=== PATIENT | female | born 1985 | race Caucasian/White ===

== ENCOUNTER → 2016-07-16 | Outpatient (REF) | payer OTHER | LOC: M LAB REF 12:22 | PROVIDERS: ATTEND Advanced Practice Midwife | DX: Z34.83 Encounter for supervision of other normal pregnancy, third trimester (principal); Z36 Encounter for antenatal screening of mother ==

== ENCOUNTER 2016-08-11 01:55 | Inpatient (IN) | payer OTHER ==
[~2016-08-11] VITALS: Ht 170.2 cm; Wt 97.0 kg
[2016-08-11] MEDS ORDERED: AMPICILLIN SOD 2 GM in D5W MINI-BAG PLUS 100 ML IV STA (02:47)
[2016-08-11 03:19] LABS: MEAN CORPUSCULAR HEMOGLOBIN 31.5 pg (27.0-33.0); MEAN CORPUSCULAR HGB CONC 34.1 g/dl (32.0-36.5); MEAN CORPUSCULAR VOLUME 92.4 fl (80.0-96.0); RED CELL DISTRIBUTION WIDTH 14.5 % (11.5-14.5); WHITE BLOOD COUNT 13.5 K/mm3 (4.0-10.0)
[2016-08-11] MEDS ORDERED: OXYTOCIN 30 UNITS IN 0.9% NaCl 500ML IV BAG (J2590) As Ordered ONE (03:29)
[2016-08-11] MEDS ORDERED: OXYTOCIN DRIP 30 UNITS in APPROPRIATE DILUENT 1 EA IV SCH (03:41)
[2016-08-11] MEDS ORDERED: RHOGAM 300 MCG (1500 IU) INJ (J2790) IM SCH (03:45)
[2016-08-11] MEDS ORDERED: ACETAMINOPHEN 500 MG TAB PO PRN (03:45)
[2016-08-11] MEDS ORDERED: MOM 30ML SUSPENSION UDC PO PRN (03:45)
[2016-08-11] MEDS ORDERED: DIBUCAINE 1% OINTMENT 30GM TOP PRN (03:45)
[2016-08-11] MEDS ORDERED: ANUSOL HC CREAM 30GM TOP PRN (03:45)
[2016-08-11] MEDS ORDERED: DOCUSATE SODIUM 100 MG CAP PO PRN (03:45)
[2016-08-11] MEDS ORDERED: MEASLES,MUMPS,RUBELLA VACCINE INJ (MMR-II) (90707) SC SCH (03:45)
[2016-08-11] MEDS ORDERED: METHYLERGONOVINE MALEATE 0.2 MG TAB PO PRN (03:45)
--- NOTE | 2016-08-11 04:12 | HPE ---
DATE OF ADMISSION: 08/11/2016 REASON FOR ADMISSION: Labor. HISTORY OF PRESENT ILLNESS: Mrs. Boyd is a 30-year-old 5, para 2, who presents at 39 weeks 6 days estimated gestational age by last menstrual period confirmed by mid trimester ultrasound with complaints of contractions. She reports contractions earlier this evening that have increased in intensity and frequency. She reports active movement. Denies any vaginal bleeding. No leakage of fluid. Her course has been unremarkable. She initiated care in the first trimester and has been appropriate throughout. PAST MEDICAL HISTORY: History of asthma. PAST SURGICAL HISTORY: She has had dilation curettage. PAST OBSTETRICAL HISTORY: She is a 5, para 2. She has had two term vaginal deliveries. MEDICATIONS: Include vitamins and albuterol. ALLERGIES: No known drug allergies. SOCIAL HISTORY: She is a former smoker, but denies any alcohol, tobacco, or drug use during the . PHYSICAL EXAMINATION: VITAL SIGNS: Stable. She is afebrile. GENERAL APPEARANCE: Well-appearing, no acute distress. She has a category 1 heart rate tracing with random contractions on tachometer. ABDOMEN: Gravid. Estimated weight (EFW) 3900 grams. CERVICAL EXAM: She is 6-7 cm dilated, 90% effaced, -1 station. LABORATORIES: Her blood type is O positive. Antibody screen is negative. Rubella is immune. RPR is nonreactive. Hepatitis surface antigen is negative. HIV is negative. Hepatitis C is nonreactive. Chlamydia and gonorrhea screens are negative. She is group B Streptococcus (GBS) positive. ASSESSMENT: 1. Mrs. Boyd is a 30-year-old 5, para 2 at 39 weeks 6 days estimated gestational age here in active labor. 2. Reassuring status. 3. Group B Streptococcus (GBS) positive. PLAN: 1. Admit to labor and delivery. CBC, RPR, type and screen. 2. Antibiotics for GBS positve. 3. Anticipate spontaneous vaginal delivery.
--- NOTE | 2016-08-11 04:17 | DN ---
DATE OF DELIVERY: 08/11/2016 TIME OF : 320 GENDER: Male. SCORES: 7 and 9. WEIGHT: 9 pounds 0 ounces or 4070 grams. LACERATIONS: None. ESTIMATED BLOOD LOSS: 300 mL. ANESTHESIA: None. COUNTS: 5 laparotomy sponges accounted for prior to and after delivery. DELIVERY NOTE: On 08/11/2016, at 0321, Mrs. Boyd, a 30-year-old 5, now para 3 had a spontaneous vaginal delivery of a liveborn male , scores of 7 and 9, weight was 4070 grams or 9 pounds 0 ounces. Head was delivered occiput anterior (OA) over an intact perineum followed by delivery of right anterior shoulder, left posterior shoulder and corpus. was handed to mother with a good cry. Cord was clamped times two, was cut by the father of the baby under my direction. Cord blood was obtained. Placenta was drained and delivered grossly intact. A premixed bag of 500 mL of normal saline with 30 units of Pitocin was bolused along with uterine massage until the uterus was firm. Upon inspection, the cervix, vagina, and perineum were grossly intact and hemostatic. Mother and baby recovered in stable condition. The couple has decided to name their son Cy.
[2016-08-11] MEDS: IBUPROFEN 800 MG TAB PO PRN (04:18)
[2016-08-11 05:41] VITALS: BP 133/76
[2016-08-11] MEDS ORDERED: AMPICILLIN SOD 1 GM in D5W MINI-BAG PLUS 50 ML IV SCH (07:00)
[2016-08-11] MEDS: PRENATAL VITAMIN TAB PO SCH (08:57)
[2016-08-11 18:23] VITALS: BP 145/94
[2016-08-12 05:58] VITALS: BP 129/73
[2016-08-12] MEDS: PRENATAL VITAMIN TAB PO SCH (07:59)
[2016-08-12 18:03] VITALS: BP 136/75
[2016-08-13] MEDS: IBUPROFEN 800 MG TAB PO PRN (04:35)
[2016-08-13 06:16] VITALS: BP 127/59
[2016-08-13] MEDS ORDERED: IBUP-1114 PO (07:30)
[2016-08-13] MEDS ORDERED: ACET50TA PO (07:30)
[2016-08-13] MEDS ORDERED: PRENTAB9 PO (07:30)
[2016-08-13] MEDS: PRENATAL VITAMIN TAB PO SCH (08:12)
== END 2016-08-13 10:50 | disposition home or self-care (01) | DRG 775 ==
LOC: M LDO 01:55 → M LDI 02:22 → M OBS 05:29
PROVIDERS: ADMIT Obstetrics & Gynecology; ATTEND Obstetrics & Gynecology
PROC: 10E0XZZ Delivery of Products of Conception, External Approach (ICD-10-PCS; principal; 2016-08-11)
DX: O80 Encounter for full-term uncomplicated delivery (principal); Z37.0 Single live birth; Z3A.39 39 weeks gestation of pregnancy; Z87.891 Personal history of nicotine dependence